=== PATIENT | male | born 1970 ===

== ENCOUNTER 2018-12-11 15:29 | Inpatient (IN) | payer MEDICAID ==
[~2018-12-11] VITALS: Ht 175.3 cm; Wt 82.6 kg
[2018-12-11] MEDS ORDERED: DiphenhydrAMINE HCL 50 MG/ML VIAL IM ONE (16:00)
[2018-12-11] MEDS ORDERED: LORazepam 2 MG/ML VIAL IM ONE (16:00)
[2018-12-11] MEDS ORDERED: HALOPERIDOL LACTATE 5 MG/ML VIAL IM ONE (16:00)
[2018-12-11 17:24] LABS: BASOPHILS % (AUTO) 0.6 % (0.0-2.0); HEMATOCRIT 48.5 % (41-53); LYMPHOCYTES % (AUTO) 17.1 % (22.0-44.0); MEAN CORPUSCULAR HEMOGLOBIN 30.7 pg (26.0-34.0); MEAN CORPUSCULAR VOLUME 93 fL (80-100); MONOCYTES % (AUTO) 8.5 % (2.0-9.0); NEUTROPHILS # (AUTO) 8.5 K/uL (1.8-7.7); NEUTROPHILS % (AUTO) 72.8 % (40.0-70.0); PLATELET COUNT (AUTO) 299 K/uL (150-450); RED BLOOD CELL COUNT(AUTO) 5.22 MIL/uL (4.50-5.90); RED CELL DISTRIBUTION WIDTH 13.1 % (11.5-14.5)
[2018-12-11 17:38] LABS: ANION GAP 9 mmol/L (8-16); CALCIUM, TOTAL 9.3 mg/dL (8.8-10.5); CARBON DIOXIDE 25 mmol/L (22-29); CHLORIDE 108 mmol/L (98-107); CREATININE 1.16 mg/dL (0.60-1.30); GLOMERULAR FILTR. RATE CALC > 60 mL/min (>60); GLUCOSE,RANDOM 100 mg/dL (70-110); POTASSIUM 3.7 mmol/L (3.5-5.1); SODIUM SERUM 142 mmol/L (136-145); UREA NITROGEN, BLOOD 21 mg/dL (7-18)
[2018-12-11 17:44] LABS: ALANINE AMINOTRANSFERASE 47 U/L (12-78); ALBUMIN 3.5 g/dL (3.4-5.0); ALKALINE PHOSPHATASE 84 U/L (46-116); ASPARTATE AMINOTRANSFERASE 22 U/L (15-37); BILIRUBIN,TOTAL 0.3 mg/dL (0.1-1.0); TOTAL PROTEIN, SERUM 7.2 g/dL (6.4-8.2)
[2018-12-11 18:30] LABS: PLATELET MORPHOLOGY COMMENT LARGE PLTS PRESENT
[2018-12-11] MEDS ORDERED: HALOPERIDOL 5 MG TABLET PO PRN (21:45)
[2018-12-11] MEDS ORDERED: ZOLPIDEM TARTRATE 10 MG TABLET PO PRN (21:45)
[2018-12-11] MEDS ORDERED: LORazepam 2 MG TABLET PO PRN (21:45)
[2018-12-12 00:35] VITALS: BP 103/68
[2018-12-12 02:07] VITALS: BP 120/73
[2018-12-12 08:06] LABS: BASOPHILS % (AUTO) 0.9 % (0.0-2.0); HEMOGLOBIN 16.6 g/dL (13.5-17.5); LYMPHOCYTES # (AUTO) 2.4 K/uL (1.0-4.8); LYMPHOCYTES % (AUTO) 28.1 % (22.0-44.0); MEAN CORPUSCULAR HEMOGLOBIN 31.1 pg (26.0-34.0); MEAN CORPUSCULAR HGB CONC 33.2 G/dL (31.0-37.0); MEAN CORPUSCULAR VOLUME 94 fL (80-100); MONOCYTES # (AUTO) 0.7 K/uL (0.1-1.0); MONOCYTES % (AUTO) 8.8 % (2.0-9.0); NEUTROPHILS # (AUTO) 5.1 K/uL (1.8-7.7); NEUTROPHILS % (AUTO) 60.2 % (40.0-70.0); PLATELET COUNT (AUTO) 283 K/uL (150-450); RED BLOOD CELL COUNT(AUTO) 5.33 MIL/uL (4.50-5.90); RED CELL DISTRIBUTION WIDTH 13.3 % (11.5-14.5)
[2018-12-12 08:14] LABS: HEMOGLOBIN A1C 5.5 % (4.5-6.2)
[2018-12-12 08:15] VITALS: BP 128/64
[2018-12-12 08:34] LABS: ALANINE AMINOTRANSFERASE 40 U/L (12-78); ALBUMIN 3.3 g/dL (3.4-5.0); ALKALINE PHOSPHATASE 80 U/L (46-116); ANION GAP 9 mmol/L (8-16); ASPARTATE AMINOTRANSFERASE 24 U/L (15-37); BILIRUBIN,TOTAL 0.5 mg/dL (0.1-1.0); CALCIUM, TOTAL 8.2 mg/dL (8.8-10.5); CARBON DIOXIDE 25 mmol/L (22-29); CHLORIDE 107 mmol/L (98-107); CHOL/HDL RATIO 4.4 (4.2-7.3); CHOLESTEROL 168 mg/dL (131-200); CREATININE 0.95 mg/dL (0.60-1.30); FREE T4 (FREE THYROXINE) 0.99 ng/dL (0.76-1.46); GLOMERULAR FILTR. RATE CALC > 60 mL/min (>60); GLUCOSE,RANDOM 78 mg/dL (70-110); HDL CHOLESTEROL 38 mg/dL (40-60); LDL CHOL (CALC.) 111 mg/dL (0-130); SODIUM SERUM 141 mmol/L (136-145); THYROID STIMULATING HORMONE 1.56 uIU/mL (0.36-3.74); TOTAL PROTEIN, SERUM 6.7 g/dL (6.4-8.2); TRIGLYCERIDES 96 mg/dL (15-150); UREA NITROGEN, BLOOD 22 mg/dL (7-18)
[2018-12-12 16:26] VITALS: BP 119/60
[2018-12-12] MEDS: RisperiDONE 1 MG TABLET PO SCH (16:48)
[2018-12-12] MEDS ORDERED: ONDANSETRON HCL 4 MG TABLET PO PRN (21:00)
[2018-12-12] MEDS ORDERED: BACITRACIN 28.4 GM OINTMENT TP PRN (21:00)
[2018-12-12] MEDS ORDERED: BENZOCAINE/MENTHOL LOZENGE MM PRN (21:00)
[2018-12-12] MEDS ORDERED: CloNIDine HCL 0.1 MG TABLET PO PRN (21:00)
[2018-12-12] MEDS ORDERED: ACETAMINOPHEN 325 MG TABLET PO PRN (21:00)
[2018-12-12] MEDS ORDERED: IBUPROFEN 600 MG TABLET PO PRN (21:00)
[2018-12-12] MEDS ORDERED: PETROLATUM,WHITE 28 GM JELLY TP PRN (21:00)
[2018-12-12] MEDS ORDERED: MAG HYDROX/AL HYDROX/SIMETH ES 30 ML SUSPENSION UDCUP PO PRN (21:00)
[2018-12-12] MEDS ORDERED: ALBUTEROL SULFATE HFA 90 MCG/PUFF 8 GM INHALER IH PRN (21:00)
[2018-12-12] MEDS ORDERED: MAGNESIUM HYDROXIDE SUSPENSION 30 ML UDCUP PO PRN (21:00)
[2018-12-12] MEDS ORDERED: DOCUSATE SODIUM 100 MG CAPSULE PO PRN (21:00)
[2018-12-12] MEDS ORDERED: OMEPRAZOLE 20 MG CAPSULE PO PRN (21:00)
[2018-12-12] MEDS ORDERED: LOPERAMIDE HCL 2 MG CAPSULE PO PRN (21:00)
[2018-12-13 06:03] VITALS: BP 114/72
[2018-12-13 08:00] VITALS: BP 115/67
[2018-12-13 08:42] LABS: AMPHET/METH SCREEN,URINE POSITIVE (NEGATIVE); BARBITURATE SCREEN, URINE NEGATIVE (NEGATIVE); BENZODIAZEPINES SCREEN,URINE NEGATIVE (NEGATIVE); CANNABINOID SCREEN,URINE NEGATIVE (NEGATIVE); COCAINE SCREEN,URINE NEGATIVE (NEGATIVE); METHADONE SCREEN, URINE NEGATIVE (NEGATIVE); OPIATE SCREEN,URINE NEGATIVE (NEGATIVE)
[2018-12-13] MEDS: RisperiDONE 1 MG TABLET PO SCH ×2 (09:00→17:00)
[2018-12-13 09:10] LABS: PHENCYCLIDINE SCREEN,URINE NEGATIVE (NEGATIVE)
[2018-12-13 09:31] LABS: APPEARANCE,URINE CLEAR (CLEAR); BILIRUBIN,URINE NEGATIVE (NEGATIVE); GLUCOSE, URINE (UA) NEGATIVE (NEGATIVE); KETONES,URINE NEGATIVE (NEGATIVE); LEUKOCYTE ESTERASE ,URINE NEGATIVE (NEGATIVE); NITRATE,URINE NEGATIVE (NEGATIVE); OCCULT BLOOD,URINE NEGATIVE (NEGATIVE); PROTEIN,URINE NEGATIVE (NEGATIVE)
[2018-12-13 16:56] VITALS: BP 101/68
[2018-12-14 05:48] VITALS: BP 104/62
[2018-12-14 08:25] VITALS: BP 118/66
[2018-12-14] MEDS: RisperiDONE 1 MG TABLET PO SCH ×3 (08:37→16:15)
[2018-12-14 16:00] VITALS: BP 135/66
[2018-12-15 05:12] VITALS: BP 117/79
[2018-12-15 08:25] VITALS: BP 118/63
[2018-12-15] MEDS: RisperiDONE 1 MG TABLET PO SCH ×2 (09:03→16:50)
[2018-12-15 16:39] VITALS: BP 109/60
[2018-12-16 06:18] VITALS: BP 103/67
[2018-12-16 08:16] VITALS: BP 108/69
[2018-12-16] MEDS: RisperiDONE 1 MG TABLET PO SCH ×2 (09:37→16:38)
[2018-12-16 16:00] VITALS: BP 112/68
[2018-12-17 08:10] VITALS: BP 125/80
[2018-12-17] MEDS: RisperiDONE 1 MG TABLET PO SCH (09:27)
[2018-12-17] MEDS ORDERED: RISP0.5T61 PO (12:40)
== END 2018-12-17 14:20 | disposition home or self-care (01) | DRG 750 ==
LOC: EMS 15:32 → B3A 22:53
PROVIDERS: ADMIT Psychiatry & Neurology Psychiatry; ATTEND Psychiatry & Neurology Psychiatry
DX: F25.9 Schizoaffective disorder, unspecified (principal); R45.851 Suicidal ideations; F41.9 Anxiety disorder, unspecified; F94.0 Selective mutism; G47.00 Insomnia, unspecified; K59.00 Constipation, unspecified
CPT/HCPCS: 83036; 84439; 84443; 96372; 99291; G0480; J1200; J1630; J2060